=== PATIENT | female | born 1995 | race Caucasian/White ===

== ENCOUNTER 2018-09-08 02:57 | Emergency (ER) | payer OTHER ==
[~2018-09-08] VITALS: Ht 157.5 cm; Wt 61.2 kg
--- NOTE | 2018-09-08 03:04 | NUR ---
Pt comes to ER with c/o abscess to left upper extremity that started draining a few days ago due to heroin use.
[2018-09-08] MEDS ORDERED: CEphaleXIN 500 MG CAPSULE PO ONE (03:15)
[2018-09-08] MEDS ORDERED: SULFAMETH/TRIMETH 800/160 MG TABLET PO ONE (03:15)
[2018-09-08] MEDS ORDERED: IBUPROFEN 600 MG TABLET PO ONE (03:15)
[2018-09-08] MEDS ORDERED: SULFAMETH/TRIMETH 800/160 MG TABLET ONE (03:16)
[2018-09-08] MEDS ORDERED: IBUPROFEN 600 MG TABLET ONE (03:16)
[2018-09-08] MEDS ORDERED: CEphaleXIN 500 MG CAPSULE ONE (03:16)
--- NOTE | 2018-09-08 03:20 | NUR ---
Abscess to left upper extremity irrigated with normal saline. Wound packed by Dr. Alan. Antibiotics and ibuprofen administered to pt. Pt understands d/c instructions.
--- NOTE | 2018-09-08 03:35 | NUR ---
Patient given written and verbal discharge instructions. Patient verbalizes understanding of instructions. Patient is ambulatory with steady gait. Refuses offer of retirement placement. Patient given list of available shelters in surrounding area. Pt left ER in stable gait/condition. No acute distress noted.
--- NOTE | 2018-09-08 03:35 | NUR ---
Note [place] in EDM - 09/08/18 at 0352 by [email or web address] Patient discharged to home in stable conditon. Written and verbal after care instructions given. Patient verbalizes understanding of instructions. Pt ambulated out of ER in stable gait. All belongings w pt. VSS. NAD noted.
[2018-09-08 03:44] VITALS: BP 136/75
== END 2018-09-08 03:45 | disposition home or self-care (01) ==
LOC: ER 03:00
DX: L02.414 Cutaneous abscess of left upper limb (principal); F11.10 Opioid abuse, uncomplicated
CPT/HCPCS: A4217; A4663

== ENCOUNTER 2018-09-08 19:15 | Emergency (ER) | payer OTHER ==
[~2018-09-08] VITALS: Ht 154.9 cm; Wt 49.9 kg
--- NOTE | 2018-09-08 19:25 | NUR ---
Patient ambulated with stable gait. AAOX4. Speech clear, speaks in complete sentences. No neuro deficits. Patient came in for a wound check s/p abscess drainage in LUE. Respiratory even and unlabored. No cardiovascular distress, all pulses palpable. No GI/ distress. Patient in bed at lowest position, side rails upx2, call light within reach. Fall precautions implemented per protocol.
[2018-09-08] MEDS ORDERED: SULFAMETH/TRIMETH 800/160 MG TABLET PO ONE (19:45)
[2018-09-08] MEDS ORDERED: SULFAMETH/TRIMETH 800/160 MG TABLET ONE (19:51)
[2018-09-08 20:00] VITALS: BP 107/75
--- NOTE | 2018-09-08 20:00 | NUR ---
Patient given written and verbal discharge instructions. Patient verbalizes understanding of instructions. Patient is ambulatory with stable gait. Refuses offer of [facility] placement. Patient given list of available shelters in surrounding area.
== END 2018-09-08 20:01 | disposition home or self-care (01) ==
LOC: ER 19:17
DX: Z48.01 Encounter for change or removal of surgical wound dressing (principal); F17.200 Nicotine dependence, unspecified, uncomplicated; F11.10 Opioid abuse, uncomplicated; F15.10 Other stimulant abuse, uncomplicated; Z59.0 Homelessness
CPT/HCPCS: A4663